=== PATIENT | female | born 1945 | race Caucasian/White ===

== ENCOUNTER 2017-06-09 14:51 | Inpatient (IN) | payer MEDICARE ==
[~2017-06-09] VITALS: Ht 162.6 cm; Wt 60.8 kg
[2017-06-09 17:50] VITALS: BP 128/76
[2017-06-09] MEDS ORDERED: METOCLOPRAMIDE HCL 10 MG TABLET PO PRN (18:15)
[2017-06-09] MEDS ORDERED: ONDANSETRON HCL 4 MG TABLET PO PRN (18:30)
[2017-06-09] MEDS ORDERED: PROCHLORPERAZINE MALEATE 10 MG TABLET PO PRN (18:45)
[2017-06-09 18:55] LABS: BASOPHILS % (AUTO) 0.3 % (0.0-2.0); HEMATOCRIT 28.1 % (36-46); HEMOGLOBIN 9.4 g/dL (12.0-16.0); LYMPHOCYTES # (AUTO) 1.1 K/uL (1.0-4.8); LYMPHOCYTES % (AUTO) 23.9 % (22.0-44.0); MEAN CORPUSCULAR HGB CONC 33.5 G/dL (31.0-37.0); MEAN CORPUSCULAR VOLUME 102 fL (80-100); MONOCYTES # (AUTO) 0.4 K/uL (0.1-1.0); MONOCYTES % (AUTO) 7.6 % (2.0-9.0); NEUTROPHILS # (AUTO) 3.1 K/uL (1.8-7.7); NEUTROPHILS % (AUTO) 65.2 % (40.0-70.0); PLATELET COUNT (AUTO) 279 K/uL (150-450); RED BLOOD CELL COUNT(AUTO) 2.77 MIL/uL (4.00-5.20); RED CELL DISTRIBUTION WIDTH 17.1 % (11.5-14.5); WHITE BLOOD COUNT (AUTO) 4.8 K/uL (4.5-11.0)
[2017-06-09 19:02] LABS: RBC MORPHOLOGY COMMENT ABNORMAL RBC MORPH
[2017-06-09 19:07] LABS: ANION GAP 6 mmol/L (8-16); CALCIUM, TOTAL 8.5 mg/dL (8.8-10.5); CARBON DIOXIDE 27 mmol/L (22-29); CHLORIDE 99 mmol/L (98-107); GLOMERULAR FILTR. RATE CALC > 60 mL/min (>60); POTASSIUM 4.4 mmol/L (3.5-5.1); SODIUM SERUM 132 mmol/L (136-145); UREA NITROGEN, BLOOD 6 mg/dL (7-18)
[2017-06-09] MEDS ORDERED: LACTULOSE 20 GM/30 ML SOLUTION UDCUP PO PRN (20:45)
[2017-06-09] MEDS ORDERED: SENNA 187 MG TABLET PO PRN (21:00)
[2017-06-09] MEDS ORDERED: LACTULOSE 20 GM/30 ML SOLUTION UDCUP PO SCH (21:00)
[2017-06-09] MEDS: SENNA 187 MG TABLET PO SCH (21:11)
[2017-06-09] MEDS: LACTOBACILLUS ACIDOPHILUS/BULGARICUS GRANULES PACKET PO SCH (21:11)
[2017-06-09] MEDS: DOCUSATE SODIUM 100 MG CAPSULE PO SCH (21:11)
[2017-06-09] MEDS: TraMADol HCL 50 MG TABLET PO PRN (21:13)
[2017-06-09 23:32] VITALS: BP 114/67
[2017-06-09] MEDS: SODIUM CHLORIDE 1 GM TABLET PO SCH (23:57)
[2017-06-10 01:12] LABS: APPEARANCE,URINE CLOUDY (CLEAR); GLUCOSE, URINE (UA) NEGATIVE (NEGATIVE); KETONES,URINE NEGATIVE (NEGATIVE); LEUKOCYTE ESTERASE ,URINE TRACE (NEGATIVE); OCCULT BLOOD,URINE NEGATIVE (NEGATIVE); PH,URINE 7.5 (5.0-8.0); PROTEIN,URINE NEGATIVE (NEGATIVE)
[2017-06-10 01:35] LABS: RBC,URINE 0-2 /HPF (0-2); SQUAMOUS EPITHELIAL CELL,UR Rare /LPF (None Seen)
[2017-06-10] MEDS: TraMADol HCL 50 MG TABLET PO PRN (05:40)
[2017-06-10 08:10] VITALS: BP 127/75
[2017-06-10] MEDS: DOCUSATE SODIUM 100 MG CAPSULE PO SCH ×2 (08:23→21:04)
[2017-06-10] MEDS: LACTOBACILLUS ACIDOPHILUS/BULGARICUS GRANULES PACKET PO SCH (08:23)
[2017-06-10] MEDS: MULTIVITAMINS WITH MINERALS, THERAPEUTIC TABLET PO SCH (08:23)
[2017-06-10] MEDS: SODIUM CHLORIDE 1 GM TABLET PO SCH ×3 (08:24→21:04)
[2017-06-10] MEDS ORDERED: SODIUM CHLORIDE 1 GM TABLET PO SCH (09:00)
[2017-06-10] MEDS ORDERED: FLUDROCORTISONE ACETATE 0.1 MG TABLET PO SCH (09:00)
[2017-06-10 15:22] VITALS: BP 119/69
[2017-06-10] MEDS: SENNA 187 MG TABLET PO SCH (21:03)
[2017-06-10 23:30] VITALS: BP 127/71
[2017-06-11] MEDS: MULTIVITAMINS WITH MINERALS, THERAPEUTIC TABLET PO SCH (07:50)
[2017-06-11] MEDS: DOCUSATE SODIUM 100 MG CAPSULE PO SCH ×2 (07:51→20:41)
[2017-06-11] MEDS: SODIUM CHLORIDE 1 GM TABLET PO SCH ×3 (07:52→20:42)
[2017-06-11 09:00] VITALS: BP 116/62
[2017-06-11 09:47] LABS: VITAMIN B12 LEVEL > 2000 pg/mL (211-911)
[2017-06-11 19:41] VITALS: BP 113/67
[2017-06-11] MEDS: FAMOTIDINE 20 MG TABLET PO SCH (20:42)
[2017-06-11] MEDS: SENNA 187 MG TABLET PO SCH (20:42)
[2017-06-11] MEDS ORDERED: FAMOTIDINE 20 MG TABLET PO SCH (21:00)
[2017-06-11 23:18] VITALS: BP 107/49
[2017-06-12] MEDS: DOCUSATE SODIUM 283 MG/5 ML MINI-ENEMA PR PRN (06:12)
[2017-06-12 07:22] LABS: ANION GAP 11 mmol/L (8-16); CALCIUM, TOTAL 8.6 mg/dL (8.8-10.5); CARBON DIOXIDE 23 mmol/L (22-29); CHLORIDE 99 mmol/L (98-107); GLOMERULAR FILTR. RATE CALC > 60 mL/min (>60); POTASSIUM 3.5 mmol/L (3.5-5.1); SODIUM SERUM 133 mmol/L (136-145); UREA NITROGEN, BLOOD 7 mg/dL (7-18)
[2017-06-12 07:45] VITALS: BP 127/72
[2017-06-12] MEDS: DOCUSATE SODIUM 100 MG CAPSULE PO SCH ×2 (08:31→21:00)
[2017-06-12] MEDS: SODIUM CHLORIDE 1 GM TABLET PO SCH ×3 (08:31→21:32)
[2017-06-12] MEDS: MULTIVITAMINS WITH MINERALS, THERAPEUTIC TABLET PO SCH (08:31)
[2017-06-12] MEDS: TraMADol HCL 50 MG TABLET PO PRN ×3 (09:00→21:40)
[2017-06-12 16:00] VITALS: BP_SYST 116; BP_SYST 139; BP_DIAS 63; BP_DIAS 75
[2017-06-12] MEDS: SENNA 187 MG TABLET PO SCH (21:00)
[2017-06-12] MEDS: FAMOTIDINE 20 MG TABLET PO SCH (21:32)
[2017-06-13 00:19] VITALS: BP 125/71
[2017-06-13 07:15] VITALS: BP 116/72
[2017-06-13] MEDS: TraMADol HCL 50 MG TABLET PO PRN ×2 (08:16→21:32)
[2017-06-13] MEDS: MULTIVITAMINS WITH MINERALS, THERAPEUTIC TABLET PO SCH (08:47)
[2017-06-13] MEDS: DOCUSATE SODIUM 100 MG CAPSULE PO SCH ×2 (08:47→21:32)
[2017-06-13] MEDS: SODIUM CHLORIDE 1 GM TABLET PO SCH ×3 (08:48→21:32)
[2017-06-13] MEDS: ONDANSETRON HCL 4 MG TABLET PO PRN (12:33)
[2017-06-13 12:55] LABS: BASOPHILS # (AUTO) 0.02 K/uL (0.00-0.20); BASOPHILS % (AUTO) 0.3 % (0.0-2.0); EOSINOPHILS # (AUTO) 0.06 K/uL (0.00-0.70); EOSINOPHILS % (AUTO) 1.15 % (1.0-6.0); HEMATOCRIT 29.8 % (36-46); HEMOGLOBIN 10.2 g/dL (12.0-16.0); LYMPHOCYTES # (AUTO) 1.1 K/uL (1.0-4.8); LYMPHOCYTES % (AUTO) 22.3 % (22.0-44.0); MEAN CORPUSCULAR HEMOGLOBIN 34.7 pg (26.0-34.0); MEAN CORPUSCULAR HGB CONC 34.3 G/dL (31.0-37.0); MEAN CORPUSCULAR VOLUME 101 fL (80-100); MONOCYTES # (AUTO) 0.4 K/uL (0.1-1.0); MONOCYTES % (AUTO) 8.2 % (2.0-9.0); NEUTROPHILS # (AUTO) 3.4 K/uL (1.8-7.7); PLATELET COUNT (AUTO) 392 K/uL (150-450); RED BLOOD CELL COUNT(AUTO) 2.95 MIL/uL (4.00-5.20); RED CELL DISTRIBUTION WIDTH 15.8 % (11.5-14.5); WHITE BLOOD COUNT (AUTO) 5.1 K/uL (4.5-11.0)
[2017-06-13 13:20] LABS: RBC MORPHOLOGY COMMENT ABNORMAL RBC MORPH
[2017-06-13] MEDS: CHOLECALCIFEROL (VIT D3) 1,000 UNITS TABLET PO SCH (14:08)
[2017-06-13 16:26] VITALS: BP 124/74
[2017-06-13 17:48] LABS: APPEARANCE,URINE CLOUDY (CLEAR); GLUCOSE, URINE (UA) NEGATIVE (NEGATIVE); KETONES,URINE NEGATIVE (NEGATIVE); LEUKOCYTE ESTERASE ,URINE SMALL (NEGATIVE); OCCULT BLOOD,URINE NEGATIVE (NEGATIVE); PROTEIN,URINE NEGATIVE (NEGATIVE)
[2017-06-13 18:02] LABS: ADD UA MICROSCOPIC YES
[2017-06-13 19:14] LABS: SQUAMOUS EPITHELIAL CELL,UR Few /LPF (None Seen)
[2017-06-13 19:15] LABS: AMORPHOUS SEDIMENT,UR Few /LPF (None Seen)
[2017-06-13 19:16] LABS: RBC,URINE 0-2 /HPF (0-2)
[2017-06-13] MEDS: SENNA 187 MG TABLET PO SCH (21:32)
[2017-06-13] MEDS: FAMOTIDINE 20 MG TABLET PO SCH (21:32)
[2017-06-13 23:30] VITALS: BP 125/67
[2017-06-14] MEDS: TraMADol HCL 50 MG TABLET PO PRN ×2 (06:38→11:54)
[2017-06-14] MEDS ORDERED: CefTRIAXone 1 GM/DEXTROSE 50 ML IV ONE (06:45)
[2017-06-14 07:30] VITALS: BP 128/75
[2017-06-14] MEDS: SODIUM CHLORIDE 1 GM TABLET PO SCH ×3 (08:22→20:25)
[2017-06-14] MEDS: DOCUSATE SODIUM 100 MG CAPSULE PO SCH ×2 (08:22→20:24)
[2017-06-14] MEDS: MULTIVITAMINS WITH MINERALS, THERAPEUTIC TABLET PO SCH (08:22)
[2017-06-14] MEDS: CHOLECALCIFEROL (VIT D3) 1,000 UNITS TABLET PO SCH (08:22)
[2017-06-14] MEDS ORDERED: SODIUM CHLORIDE 0.9% 100 ML ONE (12:04)
[2017-06-14 15:49] VITALS: BP 136/76
[2017-06-14] MEDS: 0.9% SODIUM CHLORIDE 10 ML SYRINGE IVP SCH ×2 (16:51→23:33)
[2017-06-14] MEDS: TraMADol HCL 50 MG TABLET PO SCH (20:25)
[2017-06-14] MEDS: SENNA 187 MG TABLET PO SCH (20:25)
[2017-06-14] MEDS: FAMOTIDINE 20 MG TABLET PO SCH (20:25)
[2017-06-14 21:18] VITALS: BP 123/72
[2017-06-15] VITALS: BP 100/71
[2017-06-15] MEDS: DOCUSATE SODIUM 283 MG/5 ML MINI-ENEMA PR PRN (06:11)
[2017-06-15 06:37] LABS: ANION GAP 7 mmol/L (8-16); CALCIUM, TOTAL 8.2 mg/dL (8.8-10.5); CARBON DIOXIDE 27 mmol/L (22-29); CHLORIDE 102 mmol/L (98-107); GLOMERULAR FILTR. RATE CALC > 60 mL/min (>60); PHOSPHORUS 3.5 mg/dL (2.5-4.9); POTASSIUM 3.4 mmol/L (3.5-5.1); SODIUM SERUM 136 mmol/L (136-145); UREA NITROGEN, BLOOD 6 mg/dL (7-18)
[2017-06-15 07:21] VITALS: BP 131/77
[2017-06-15] MEDS: 0.9% SODIUM CHLORIDE 10 ML SYRINGE IVP SCH ×3 (08:00→23:16)
[2017-06-15] MEDS: MULTIVITAMINS WITH MINERALS, THERAPEUTIC TABLET PO SCH (08:17)
[2017-06-15] MEDS: CHOLECALCIFEROL (VIT D3) 1,000 UNITS TABLET PO SCH (08:17)
[2017-06-15] MEDS: SODIUM CHLORIDE 1 GM TABLET PO SCH ×3 (08:17→21:22)
[2017-06-15] MEDS: TraMADol HCL 50 MG TABLET PO SCH ×2 (08:17→21:22)
[2017-06-15] MEDS: DOCUSATE SODIUM 100 MG CAPSULE PO SCH ×2 (08:20→21:22)
[2017-06-15] MEDS ORDERED: POTASSIUM CHLORIDE 20 MEQ ER TABLET PO ONE (13:45)
[2017-06-15] MEDS ORDERED: HYDR-309 PO (15:20)
[2017-06-15] MEDS ORDERED: LACT1CAP78 PO (15:20)
[2017-06-15 16:00] VITALS: BP 106/79
[2017-06-15] MEDS: SENNA 187 MG TABLET PO SCH (21:22)
[2017-06-15] MEDS: FAMOTIDINE 20 MG TABLET PO SCH (21:22)
[2017-06-15 23:46] VITALS: BP 116/69
[2017-06-16] MEDS: ONDANSETRON HCL 4 MG TABLET PO PRN (07:34)
[2017-06-16 08:00] VITALS: BP 114/72
[2017-06-16] MEDS: SODIUM CHLORIDE 1 GM TABLET PO SCH ×3 (08:23→21:25)
[2017-06-16] MEDS: DOCUSATE SODIUM 100 MG CAPSULE PO SCH ×2 (08:23→21:25)
[2017-06-16] MEDS: TraMADol HCL 50 MG TABLET PO SCH ×2 (08:23→21:25)
[2017-06-16] MEDS: 0.9% SODIUM CHLORIDE 10 ML SYRINGE IVP SCH ×2 (08:23→16:44)
[2017-06-16] MEDS: CHOLECALCIFEROL (VIT D3) 1,000 UNITS TABLET PO SCH (08:23)
[2017-06-16] MEDS: MULTIVITAMINS WITH MINERALS, THERAPEUTIC TABLET PO SCH (08:23)
[2017-06-16 16:15] VITALS: BP 123/70
[2017-06-16] MEDS: SENNA 187 MG TABLET PO SCH (21:25)
[2017-06-16] MEDS: FAMOTIDINE 20 MG TABLET PO SCH (21:25)
[2017-06-17] MEDS: 0.9% SODIUM CHLORIDE 10 ML SYRINGE IVP SCH ×2 (00:34→08:17)
[2017-06-17 00:39] VITALS: BP 120/73
[2017-06-17] MEDS: DOCUSATE SODIUM 283 MG/5 ML MINI-ENEMA PR PRN (06:30)
[2017-06-17 07:45] VITALS: BP 114/79
[2017-06-17] MEDS: MULTIVITAMINS WITH MINERALS, THERAPEUTIC TABLET PO SCH (08:15)
[2017-06-17] MEDS: SODIUM CHLORIDE 1 GM TABLET PO SCH ×3 (08:16→20:22)
[2017-06-17] MEDS: TraMADol HCL 50 MG TABLET PO SCH ×2 (08:16→20:23)
[2017-06-17] MEDS: DOCUSATE SODIUM 100 MG CAPSULE PO SCH ×2 (08:16→20:22)
[2017-06-17] MEDS: CHOLECALCIFEROL (VIT D3) 1,000 UNITS TABLET PO SCH (08:16)
[2017-06-17] MEDS: ONDANSETRON HCL 4 MG TABLET PO PRN ×2 (10:38→20:26)
[2017-06-17] MEDS: PROPRANOLOL HCL 10 MG TABLET PO SCH ×3 (13:10→20:22)
[2017-06-17 15:33] VITALS: BP 98/60
[2017-06-17] MEDS ORDERED: PROPRANOLOL HCL 10 MG TABLET PO SCH (16:00)
[2017-06-17 20:15] VITALS: BP 126/64
[2017-06-17] MEDS: SENNA 187 MG TABLET PO SCH (20:22)
[2017-06-17] MEDS: FAMOTIDINE 20 MG TABLET PO SCH (20:23)
[2017-06-17 23:49] VITALS: BP 108/67
[2017-06-18] MEDS: ACETAMINOPHEN 325 MG TABLET PO PRN (06:45)
[2017-06-18 07:28] LABS: ANION GAP 10 mmol/L (8-16); CALCIUM, TOTAL 8.8 mg/dL (8.8-10.5); CARBON DIOXIDE 27 mmol/L (22-29); CHLORIDE 93 mmol/L (98-107); CREATININE 0.73 mg/dL (0.60-1.30); GLOMERULAR FILTR. RATE CALC > 60 mL/min (>60); POTASSIUM 3.9 mmol/L (3.5-5.1); SODIUM SERUM 130 mmol/L (136-145); UREA NITROGEN, BLOOD 6 mg/dL (7-18)
[2017-06-18 07:36] VITALS: BP 105/61
[2017-06-18] MEDS: CHOLECALCIFEROL (VIT D3) 1,000 UNITS TABLET PO SCH (08:07)
[2017-06-18] MEDS: TraMADol HCL 50 MG TABLET PO SCH ×2 (08:07→20:39)
[2017-06-18] MEDS: PROPRANOLOL HCL 10 MG TABLET PO SCH ×3 (08:07→20:39)
[2017-06-18] MEDS: DOCUSATE SODIUM 100 MG CAPSULE PO SCH ×2 (08:07→20:39)
[2017-06-18] MEDS: MULTIVITAMINS WITH MINERALS, THERAPEUTIC TABLET PO SCH (08:07)
[2017-06-18] MEDS: SODIUM CHLORIDE 1 GM TABLET PO SCH ×3 (08:07→20:39)
[2017-06-18 15:19] VITALS: BP 92/60
[2017-06-18 17:08] VITALS: BP 108/73
[2017-06-18 20:37] VITALS: BP 122/71
[2017-06-18] MEDS: FAMOTIDINE 20 MG TABLET PO SCH (20:39)
[2017-06-18] MEDS: SENNA 187 MG TABLET PO SCH (20:39)
[2017-06-18 23:15] VITALS: BP 129/66
[2017-06-19] MEDS: ACETAMINOPHEN 325 MG TABLET PO PRN (04:27)
[2017-06-19 07:27] VITALS: BP 108/63
[2017-06-19] MEDS: PROPRANOLOL HCL 10 MG TABLET PO SCH ×3 (08:15→22:15)
[2017-06-19] MEDS: MULTIVITAMINS WITH MINERALS, THERAPEUTIC TABLET PO SCH (08:15)
[2017-06-19] MEDS: SODIUM CHLORIDE 1 GM TABLET PO SCH ×3 (08:15→22:15)
[2017-06-19] MEDS: TraMADol HCL 50 MG TABLET PO SCH ×2 (08:15→22:15)
[2017-06-19] MEDS: CHOLECALCIFEROL (VIT D3) 1,000 UNITS TABLET PO SCH (08:15)
[2017-06-19] MEDS: DOCUSATE SODIUM 100 MG CAPSULE PO SCH ×2 (08:15→22:15)
[2017-06-19 15:15] VITALS: BP 117/61
[2017-06-19] MEDS: SENNA 187 MG TABLET PO SCH (22:15)
[2017-06-19] MEDS: FAMOTIDINE 20 MG TABLET PO SCH (22:15)
[2017-06-19 22:18] VITALS: BP 114/66
[2017-06-20] VITALS: BP 116/77
[2017-06-20] MEDS: DOCUSATE SODIUM 283 MG/5 ML MINI-ENEMA PR PRN (06:21)
[2017-06-20 07:05] VITALS: BP 112/65
[2017-06-20] MEDS: CHOLECALCIFEROL (VIT D3) 1,000 UNITS TABLET PO SCH (08:19)
[2017-06-20] MEDS: TraMADol HCL 50 MG TABLET PO SCH ×2 (08:19→22:19)
[2017-06-20] MEDS: SODIUM CHLORIDE 1 GM TABLET PO SCH ×3 (08:19→22:19)
[2017-06-20] MEDS: PROPRANOLOL HCL 10 MG TABLET PO SCH ×3 (08:19→22:19)
[2017-06-20] MEDS: DOCUSATE SODIUM 100 MG CAPSULE PO SCH ×2 (08:19→22:19)
[2017-06-20] MEDS: MULTIVITAMINS WITH MINERALS, THERAPEUTIC TABLET PO SCH (08:19)
[2017-06-20 15:45] VITALS: BP 103/67
[2017-06-20] MEDS: SENNA 187 MG TABLET PO SCH (22:19)
[2017-06-20] MEDS: FAMOTIDINE 20 MG TABLET PO SCH (22:19)
[2017-06-21 00:54] VITALS: BP 109/67
[2017-06-21 05:47] LABS: ANION GAP 8 mmol/L (8-16); CALCIUM, TOTAL 8.4 mg/dL (8.8-10.5); CARBON DIOXIDE 26 mmol/L (22-29); CHLORIDE 97 mmol/L (98-107); CREATININE 0.51 mg/dL (0.60-1.30); GLOMERULAR FILTR. RATE CALC > 60 mL/min (>60); SODIUM SERUM 131 mmol/L (136-145); UREA NITROGEN, BLOOD 8 mg/dL (7-18)
[2017-06-21 07:30] VITALS: BP 118/78
[2017-06-21] MEDS: CHOLECALCIFEROL (VIT D3) 1,000 UNITS TABLET PO SCH (09:15)
[2017-06-21] MEDS: TraMADol HCL 50 MG TABLET PO SCH (09:15)
[2017-06-21] MEDS: SODIUM CHLORIDE 1 GM TABLET PO SCH ×3 (09:15→20:32)
[2017-06-21] MEDS: MULTIVITAMINS WITH MINERALS, THERAPEUTIC TABLET PO SCH (09:15)
[2017-06-21] MEDS: DOCUSATE SODIUM 100 MG CAPSULE PO SCH ×2 (09:15→20:32)
[2017-06-21] MEDS: PROPRANOLOL HCL 10 MG TABLET PO SCH ×3 (09:15→20:33)
[2017-06-21 15:56] VITALS: BP 104/60
[2017-06-21] MEDS ORDERED: ACETAMINOPHEN 325 MG TABLET PO SCH (16:00)
[2017-06-21] MEDS: ONDANSETRON HCL 4 MG TABLET PO PRN (16:10)
[2017-06-21 20:31] VITALS: BP 99/55
[2017-06-21] MEDS: FAMOTIDINE 20 MG TABLET PO SCH (20:32)
[2017-06-21] MEDS: ACETAMINOPHEN 325 MG TABLET PO SCH (20:33)
[2017-06-21] MEDS: SENNA 187 MG TABLET PO SCH (20:33)
[2017-06-22 06:46] VITALS: BP 111/65
[2017-06-22 07:05] VITALS: BP 124/71
[2017-06-22] MEDS: DOCUSATE SODIUM 100 MG CAPSULE PO SCH ×2 (08:22→21:05)
[2017-06-22] MEDS: SODIUM CHLORIDE 1 GM TABLET PO SCH ×3 (08:22→21:05)
[2017-06-22] MEDS: CHOLECALCIFEROL (VIT D3) 1,000 UNITS TABLET PO SCH (08:23)
[2017-06-22] MEDS: ACETAMINOPHEN 325 MG TABLET PO SCH ×2 (08:23→20:45)
[2017-06-22] MEDS: PROPRANOLOL HCL 10 MG TABLET PO SCH ×3 (08:23→21:06)
[2017-06-22] MEDS: MULTIVITAMINS WITH MINERALS, THERAPEUTIC TABLET PO SCH (08:23)
[2017-06-22] MEDS ORDERED: [UNRECOGNIZED DRUG - OTHER] PO SCH (13:00)
[2017-06-22] MEDS ORDERED: CHOLECALCIFEROL PO SCH (13:00)
[2017-06-22 15:35] VITALS: BP 101/67
[2017-06-22 20:30] VITALS: BP 112/84
[2017-06-22] MEDS: SENNA 187 MG TABLET PO SCH (21:06)
[2017-06-22] MEDS: FAMOTIDINE 20 MG TABLET PO SCH (21:07)
[2017-06-23] VITALS: BP 136/90
[2017-06-23] MEDS: DOCUSATE SODIUM 283 MG/5 ML MINI-ENEMA PR PRN (07:02)
[2017-06-23 07:03] VITALS: BP 119/78
[2017-06-23] MEDS: MULTIVITAMINS WITH MINERALS, THERAPEUTIC TABLET PO SCH (08:20)
[2017-06-23] MEDS: DOCUSATE SODIUM 100 MG CAPSULE PO SCH ×2 (08:20→20:51)
[2017-06-23] MEDS: POLYETHYLENE GLYCOL 3350 17 GM PACKET PO SCH (08:20)
[2017-06-23] MEDS: PROPRANOLOL HCL 10 MG TABLET PO SCH ×3 (08:22→20:51)
[2017-06-23] MEDS: SODIUM CHLORIDE 1 GM TABLET PO SCH ×3 (08:22→20:51)
[2017-06-23] MEDS: ACETAMINOPHEN 325 MG TABLET PO SCH ×2 (08:22→20:51)
[2017-06-23] MEDS: [UNRECOGNIZED DRUG - OTHER] PO SCH (08:36)
[2017-06-23] MEDS: CHOLECALCIFEROL PO SCH (08:36)
[2017-06-23] MEDS ORDERED: *NON-FORMULARY MED [ENTER DRUG, DOSE, FREQ IN COMMENTS] CLINICAL ONE ×2 (09:00)
[2017-06-23] MEDS: ACETAMINOPHEN 325 MG TABLET PO PRN (14:55)
[2017-06-23 15:30] VITALS: BP 90/60
[2017-06-23 20:45] VITALS: BP 102/59
[2017-06-23] MEDS: FAMOTIDINE 20 MG TABLET PO SCH (20:51)
[2017-06-23] MEDS: SENNA 187 MG TABLET PO SCH (20:51)
[2017-06-23 23:42] VITALS: BP 94/55
[2017-06-24 06:59] VITALS: BP 112/67
[2017-06-24 07:00] VITALS: BP 112/67
[2017-06-24] MEDS: [UNRECOGNIZED DRUG - OTHER] PO SCH (07:53)
[2017-06-24] MEDS: POLYETHYLENE GLYCOL 3350 17 GM PACKET PO SCH (07:53)
[2017-06-24] MEDS: CHOLECALCIFEROL PO SCH (07:53)
[2017-06-24] MEDS: DOCUSATE SODIUM 100 MG CAPSULE PO SCH ×2 (07:54→21:07)
[2017-06-24] MEDS: SODIUM CHLORIDE 1 GM TABLET PO SCH ×3 (07:54→21:07)
[2017-06-24] MEDS: MULTIVITAMINS WITH MINERALS, THERAPEUTIC TABLET PO SCH (07:54)
[2017-06-24] MEDS: PROPRANOLOL HCL 10 MG TABLET PO SCH ×3 (07:54→21:00)
[2017-06-24] MEDS: ACETAMINOPHEN 325 MG TABLET PO SCH ×3 (07:54→21:07)
[2017-06-24] MEDS: MEGESTROL ACETATE 400 MG/10 ML SUSPENSION UDCUP PO SCH ×4 (12:00→17:00)
[2017-06-24 15:50] VITALS: BP 90/57
[2017-06-24 21:05] VITALS: BP 93/61
[2017-06-24] MEDS: FAMOTIDINE 20 MG TABLET PO SCH (21:07)
[2017-06-24] MEDS: SENNA 187 MG TABLET PO SCH (21:07)
[2017-06-25] VITALS: BP 89/54
[2017-06-25 00:20] VITALS: BP 87/59
[2017-06-25 01:00] VITALS: BP 94/48
[2017-06-25] MEDS: MEGESTROL ACETATE 400 MG/10 ML SUSPENSION UDCUP PO SCH ×2 (07:30→16:05)
[2017-06-25 08:46] VITALS: BP 104/60
[2017-06-25] MEDS: ACETAMINOPHEN 325 MG TABLET PO SCH ×3 (09:27→20:04)
[2017-06-25] MEDS: SODIUM CHLORIDE 1 GM TABLET PO SCH ×3 (10:07→20:04)
[2017-06-25] MEDS: DOCUSATE SODIUM 100 MG CAPSULE PO SCH ×2 (10:11→20:04)
[2017-06-25] MEDS: POLYETHYLENE GLYCOL 3350 17 GM PACKET PO SCH (10:11)
[2017-06-25] MEDS: PROPRANOLOL HCL 10 MG TABLET PO SCH ×3 (10:11→20:04)
[2017-06-25] MEDS: MULTIVITAMINS WITH MINERALS, THERAPEUTIC TABLET PO SCH (10:11)
[2017-06-25] MEDS: [UNRECOGNIZED DRUG - OTHER] PO SCH (10:21)
[2017-06-25] MEDS: CHOLECALCIFEROL PO SCH (10:21)
[2017-06-25 15:01] VITALS: BP 102/57
[2017-06-25 19:54] VITALS: BP 90/60
[2017-06-25] MEDS: FAMOTIDINE 20 MG TABLET PO SCH (20:03)
[2017-06-25] MEDS: SENNA 187 MG TABLET PO SCH (20:04)
[2017-06-26 04:00] VITALS: BP 116/70
[2017-06-26 07:23] VITALS: BP 127/72
[2017-06-26 08:37] VITALS: BP 111/61
[2017-06-26] MEDS: MEGESTROL ACETATE 400 MG/10 ML SUSPENSION UDCUP PO SCH ×2 (09:47→16:51)
[2017-06-26] MEDS: POLYETHYLENE GLYCOL 3350 17 GM PACKET PO SCH (09:47)
[2017-06-26] MEDS: MULTIVITAMINS WITH MINERALS, THERAPEUTIC TABLET PO SCH (09:48)
[2017-06-26] MEDS: [UNRECOGNIZED DRUG - OTHER] PO SCH (09:48)
[2017-06-26] MEDS: CHOLECALCIFEROL PO SCH (09:48)
[2017-06-26] MEDS: ACETAMINOPHEN 325 MG TABLET PO SCH ×3 (09:49→20:11)
[2017-06-26] MEDS: SODIUM CHLORIDE 1 GM TABLET PO SCH ×3 (09:49→20:10)
[2017-06-26] MEDS: DOCUSATE SODIUM 100 MG CAPSULE PO SCH ×2 (09:49→20:11)
[2017-06-26] MEDS: PROPRANOLOL HCL 10 MG TABLET PO SCH ×3 (09:50→20:10)
[2017-06-26 16:50] VITALS: BP 91/64
[2017-06-26 20:09] VITALS: BP 99/55
[2017-06-26] MEDS: FAMOTIDINE 20 MG TABLET PO SCH (20:11)
[2017-06-26] MEDS: SENNA 187 MG TABLET PO SCH (20:11)
[2017-06-26 23:20] VITALS: BP 86/47
[2017-06-27 00:04] VITALS: BP 93/49
[2017-06-27 06:37] LABS: BASOPHILS # (AUTO) 0.03 K/uL (0.00-0.20); BASOPHILS % (AUTO) 0.3 % (0.0-2.0); EOSINOPHILS # (AUTO) 0.02 K/uL (0.00-0.70); EOSINOPHILS % (AUTO) 0.27 % (1.0-6.0); HEMATOCRIT 31.9 % (36-46); HEMOGLOBIN 11.1 g/dL (12.0-16.0); LYMPHOCYTES # (AUTO) 2.1 K/uL (1.0-4.8); LYMPHOCYTES % (AUTO) 26.3 % (22.0-44.0); MEAN CORPUSCULAR HEMOGLOBIN 34.7 pg (26.0-34.0); MEAN CORPUSCULAR HGB CONC 34.7 G/dL (31.0-37.0); MEAN CORPUSCULAR VOLUME 100 fL (80-100); MONOCYTES # (AUTO) 0.4 K/uL (0.1-1.0); MONOCYTES % (AUTO) 4.7 % (2.0-9.0); NEUTROPHILS # (AUTO) 5.4 K/uL (1.8-7.7); NEUTROPHILS % (AUTO) 68.4 % (40.0-70.0); PLATELET COUNT (AUTO) 182 K/uL (150-450); RED BLOOD CELL COUNT(AUTO) 3.19 MIL/uL (4.00-5.20); RED CELL DISTRIBUTION WIDTH 14.5 % (11.5-14.5); WHITE BLOOD COUNT (AUTO) 7.9 K/uL (4.5-11.0)
[2017-06-27 06:44] LABS: RBC MORPHOLOGY COMMENT ABNORMAL RBC MORPH
[2017-06-27 06:55] LABS: ALANINE AMINOTRANSFERASE 24 U/L (12-78); ALBUMIN 2.8 g/dL (3.4-5.0); ANION GAP 10 mmol/L (8-16); ASPARTATE AMINOTRANSFERASE 33 U/L (15-37); BILIRUBIN,TOTAL 0.6 mg/dL (0.1-1.0); CALCIUM, TOTAL 8.2 mg/dL (8.8-10.5); CARBON DIOXIDE 22 mmol/L (22-29); CHLORIDE 106 mmol/L (98-107); CREATININE 0.65 mg/dL (0.60-1.30); GLOMERULAR FILTR. RATE CALC > 60 mL/min (>60); POTASSIUM 3.6 mmol/L (3.5-5.1); SODIUM SERUM 138 mmol/L (136-145); TOTAL PROTEIN, SERUM 6.3 g/dL (6.4-8.2); UREA NITROGEN, BLOOD 11 mg/dL (7-18)
[2017-06-27 07:26] VITALS: BP 127/72
[2017-06-27] MEDS: MEGESTROL ACETATE 400 MG/10 ML SUSPENSION UDCUP PO SCH ×2 (08:39→17:24)
[2017-06-27] MEDS: ACETAMINOPHEN 325 MG TABLET PO SCH ×3 (08:39→21:00)
[2017-06-27] MEDS: PROPRANOLOL HCL 10 MG TABLET PO SCH (09:00)
[2017-06-27 10:00] VITALS: BP 92/65
[2017-06-27] MEDS: POLYETHYLENE GLYCOL 3350 17 GM PACKET PO SCH (10:01)
[2017-06-27] MEDS: CHOLECALCIFEROL PO SCH (10:02)
[2017-06-27] MEDS: DOCUSATE SODIUM 100 MG CAPSULE PO SCH ×2 (10:02→20:58)
[2017-06-27] MEDS: MULTIVITAMINS WITH MINERALS, THERAPEUTIC TABLET PO SCH (10:02)
[2017-06-27] MEDS: SODIUM CHLORIDE 1 GM TABLET PO SCH ×3 (10:02→20:59)
[2017-06-27] MEDS: [UNRECOGNIZED DRUG - OTHER] PO SCH (10:02)
[2017-06-27 15:21] VITALS: BP 99/62
[2017-06-27] MEDS: FAMOTIDINE 20 MG TABLET PO SCH (20:59)
[2017-06-27] MEDS: SENNA 187 MG TABLET PO SCH (20:59)
[2017-06-27 23:47] VITALS: BP 112/66
[2017-06-28] MEDS: DOCUSATE SODIUM 283 MG/5 ML MINI-ENEMA PR PRN (06:16)
[2017-06-28] MEDS: ACETAMINOPHEN 325 MG TABLET PO SCH ×3 (07:35→21:24)
[2017-06-28] MEDS: MEGESTROL ACETATE 400 MG/10 ML SUSPENSION UDCUP PO SCH ×2 (07:36→17:19)
[2017-06-28 08:00] VITALS: BP 130/69
[2017-06-28] MEDS: DOCUSATE SODIUM 100 MG CAPSULE PO SCH ×3 (08:27→21:24)
[2017-06-28] MEDS: CHOLECALCIFEROL PO SCH (08:28)
[2017-06-28] MEDS: POLYETHYLENE GLYCOL 3350 17 GM PACKET PO SCH (08:28)
[2017-06-28] MEDS: [UNRECOGNIZED DRUG - OTHER] PO SCH (08:28)
[2017-06-28] MEDS: MULTIVITAMINS WITH MINERALS, THERAPEUTIC TABLET PO SCH (08:28)
[2017-06-28] MEDS: SODIUM CHLORIDE 1 GM TABLET PO SCH ×3 (08:28→21:23)
[2017-06-28 15:14] VITALS: BP 120/77
[2017-06-28] MEDS ORDERED: NACL1 PO (15:36)
[2017-06-28] MEDS ORDERED: LACT30L PO (15:36)
[2017-06-28] MEDS ORDERED: MEGE400O4 PO (15:36)
[2017-06-28] MEDS ORDERED: ACET-2247 PO (15:36)
[2017-06-28] MEDS ORDERED: FAMO20 PO (15:36)
[2017-06-28] MEDS ORDERED: ONDA4 PO (15:36)
[2017-06-28] MEDS ORDERED: MV-M1TAB2 PO (15:36)
[2017-06-28] MEDS ORDERED: MIRALAX PO (15:36)
[2017-06-28] MEDS ORDERED: DSS100 PO (15:36)
[2017-06-28] MEDS: SENNA 187 MG TABLET PO SCH (21:24)
[2017-06-28] MEDS: FAMOTIDINE 20 MG TABLET PO SCH (21:24)
[2017-06-29 00:07] VITALS: BP 99/61
[2017-06-29 09:10] VITALS: BP 108/63
[2017-06-29] MEDS: POLYETHYLENE GLYCOL 3350 17 GM PACKET PO SCH (11:20)
[2017-06-29] MEDS: ACETAMINOPHEN 325 MG TABLET PO SCH ×4 (11:20→21:31)
[2017-06-29] MEDS: DOCUSATE SODIUM 100 MG CAPSULE PO SCH ×2 (11:21→21:00)
[2017-06-29] MEDS: SODIUM CHLORIDE 1 GM TABLET PO SCH ×4 (11:21→21:31)
[2017-06-29] MEDS: MEGESTROL ACETATE 400 MG/10 ML SUSPENSION UDCUP PO SCH ×2 (11:21→16:53)
[2017-06-29] MEDS: CHOLECALCIFEROL PO SCH (11:21)
[2017-06-29] MEDS: MULTIVITAMINS WITH MINERALS, THERAPEUTIC TABLET PO SCH (11:21)
[2017-06-29] MEDS: [UNRECOGNIZED DRUG - OTHER] PO SCH (11:21)
[2017-06-29 15:30] VITALS: BP 101/58
[2017-06-29] MEDS ORDERED: MULT1TAB70 PO (15:57)
[2017-06-29] MEDS ORDERED: [UNRECOGNIZED DRUG - CODE] PO (15:57)
[2017-06-29] MEDS: SENNA 187 MG TABLET PO SCH (21:00)
[2017-06-29] MEDS: FAMOTIDINE 20 MG TABLET PO SCH (21:31)
[2017-06-30] VITALS: BP 85/56
[2017-06-30 01:06] VITALS: BP 92/61
[2017-06-30 07:49] VITALS: BP 114/68
[2017-06-30] MEDS: DOCUSATE SODIUM 100 MG CAPSULE PO SCH ×2 (09:00→09:25)
[2017-06-30] MEDS: ACETAMINOPHEN 325 MG TABLET PO SCH (09:24)
[2017-06-30] MEDS: MULTIVITAMINS WITH MINERALS, THERAPEUTIC TABLET PO SCH (09:24)
[2017-06-30] MEDS: MEGESTROL ACETATE 400 MG/10 ML SUSPENSION UDCUP PO SCH (09:24)
[2017-06-30] MEDS: SODIUM CHLORIDE 1 GM TABLET PO SCH (09:25)
[2017-06-30] MEDS: POLYETHYLENE GLYCOL 3350 17 GM PACKET PO SCH (09:25)
[2017-06-30] MEDS: [UNRECOGNIZED DRUG - OTHER] PO SCH (09:25)
[2017-06-30] MEDS: CHOLECALCIFEROL PO SCH (09:25)
== END 2017-06-30 11:45 | disposition home health service (06) | DRG 55 ==
LOC: 2WR 16:50
DX: D33.1 Benign neoplasm of brain, infratentorial (principal); E87.1 Hypo-osmolality and hyponatremia; N39.0 Urinary tract infection, site not specified; R63.0 Anorexia; G81.94 Hemiplegia, unspecified affecting left nondominant side; R13.13 Dysphagia, pharyngeal phase; D53.9 Nutritional anemia, unspecified; H66.92 Otitis media, unspecified, left ear; H54.41 Blindness, right eye, normal vision left eye; H91.92 Unspecified hearing loss, left ear; F32.9 Major depressive disorder, single episode, unspecified; R47.1 Dysarthria and anarthria; F41.9 Anxiety disorder, unspecified; H93.19 Tinnitus, unspecified ear; R00.0 Tachycardia, unspecified; E55.9 Vitamin D deficiency, unspecified; E03.9 Hypothyroidism, unspecified; R27.0 Ataxia, unspecified; R49.0 Dysphonia; Z94.7 Corneal transplant status; Z86.61 Personal history of infections of the central nervous system; Z86.011 Personal history of benign neoplasm of the brain; Z83.3 Family history of diabetes mellitus
CPT/HCPCS: 70450; 82306; 82607; 82746; 83735; 84100; 84439; 84443; 87081; 87086; 92507; 92508; 92526; 92610; 93005; 93970; 97110; 97112; 97116; 97162; 97167; 97530; 97535; 99366; J0696; J7050; Q0162